=== PATIENT | male | born 1960 | race Caucasian/White ===

== ENCOUNTER 2019-02-10 18:19 | Emergency (ER) | payer SELFPAY ==
[~2019-02-10] VITALS: Ht 167.6 cm; Wt 82.1 kg
[2019-02-10 18:28] VITALS: Ht 167.6 cm; Wt 82.1 kg
[2019-02-10 19:06] VITALS: BP 140/75
== END 2019-02-10 19:06 | disposition home or self-care (01) ==
LOC: ED 18:19
DX: T15.02XA Foreign body in cornea, left eye, initial encounter (principal); W45.8XXA Other foreign body or object entering through skin, initial encounter; Y93.89 Activity, other specified; Y92.89 Other specified places as the place of occurrence of the external cause; Y99.8 Other external cause status